=== PATIENT | female | born 1995 | race Caucasian/White ===

== ENCOUNTER 2017-01-27 19:41 | Emergency (ER) | payer OTHER ==
--- NOTE | 2017-01-27 20:34 | RADIOLOGY REPORT ---
HISTORY: Horse stepped on left foot, pain COMPARISON: None. FINDINGS: Three views of the foot obtained. There is no fracture. There is no lytic or sclerotic lesion. The re is no soft tissue swelling. There is normal alignment and mineralization. IMPRESSION: Unremarkable x-rays of the foot. Final Electronic Signature: This report was electronically signed by Cristian Ngo MD on 01/27/2017 8:32 PM. [email or web address] /
--- NOTE | 2017-01-27 20:46 | ER NURSING DOCUMENTATION ---
Nurse's Notes [facility] Name:Maia Frances Age:21 yrs Sex:Female :1995 Arrival Date:01/27/2017 Time:19:41 Bed6 Private MD: Diagnosis:Crush Injury to Toe Presentation: 01/27 19:43 Acuity: GRACY 4 19:53 Presenting complaint: Patient states: Horse stepped on the left foot of patient. rh patient having hard time bearing weight. Transition of care: Home. 19:53 Method Of Arrival: Walk In Triage Assessment: 19:54 General: Appears in no apparent distress, Behavior is cooperative. Pain: Complains of rh pain in dorsum of left foot, left first toe and left second toe. Neuro: Level of Consciousness is awake, alert, obeys commands, Oriented to person, place, time, event. Musculoskeletal: Circulation, motion, and sensation intact Range of motion intact in all extremities. Historical: - Allergies: NSAIDS; - Home Meds: 1. None - PMHx: None; - PSHx: None; - Tetanus: < 10 years. - Ebola Screening: : Patient negative for fever greater than or equal to 101.5 degrees Fahrenheit, and additional compatible Ebola Virus Disease symptoms. - Immunization history: Flu Vaccine None. - Social history: Smoking status: Patient states was never smoker of tobacco. Screenin:55 Infectious Disease Risk None. Abuse screen: Denies threats or abuse. Denies injuries rh from another. Nutritional screening: No deficits noted. Assessment: 19:55 See Triage Assessment done by same RN. Vital Signs: 19:54 BP 111 / 38; Pulse 80; Resp 16; Temp 98.7(O); Pulse Ox 96% on R/A; Weight 58.97 kg; rh Height 5 ft. 4 in. (162.56 cm); Pain 3/10; 19:54 Body Mass Index 22.31 (58.97 kg, 162.56 cm) ED Course: 19:43 Patient arrived in ED. dp 19:43 Klaudia Hobbs is Primary Nurse. 19:43 Triage completed. 19:47 Valdemar Velazquez MD is Attending Physician. sd 19:55 Notified ED Physician of patient's arrival and chief complaint. Dr. Velazquez notified. rh Affected limb iced. Affected limb elevated. 19:55 Valuables Remains with patient Patient has correct armband on for positive rh identification. Bed in low position. Call light in reach. Side rails up X 1. 20:20 Port Xray Completed. tt Administered Medications: No medications were administered Outcome: 20:31 Discharge ordered by . sd 20:45 Discharged to home ambulatory. 20:45 Condition: improved 20:45 Discharge Assessment: Patient awake, alert and oriented x 3. No cognitive and/or functional deficits noted. Patient verbalized understanding of disposition instructions. 20:45 Discharge instructions given to patient, Instructed on discharge instructions, follow up and referral plans. [facility] Demonstrated understanding of instructions. 20:45 Patient left the ED. Signatures: Valdemar Velazquez MD MD sc Terriere, Tracy tt Hofsess, Rachel Jerrica Matthews dp
--- NOTE | 2017-01-27 20:46 | ER PHYSICIAN DOCUMENTATION ---
Physician Documentation [facility] Name:Maia Frances Age:21 yrs Sex:Female :1995 Arrival Date:01/27/2017 Time:19:41 Bed6 Private MD: Valdemar Nick Disposition: 01/27/17 20:31 Discharged to Home/Self Care. Impression: Crush Injury to Toe. - Condition is Good. - Discharge Instructions: CRUSH INJURY, Foot/Toe. - Work release form, Medical Reconciliation form form. - Follow up: Private Physician; When: As needed; Reason: Worsening of condition. - Problem is new. - Symptoms are unchanged. HPI: 01/27 19:57 This 21 yrs old Female presents to ER via Walk In with complaints of Foot sc Injury - LEFT. 19:57 The patient presents with an injury. The complaints affect the left foot. Context: The sc problem was sustained at work, resulted from [employer] stepped on her toes., the patient is able to ambulate. Onset: The symptom(s)/episode began/occurred just prior to arrival. Associated signs and symptoms: The patient has no apparent associated signs or symptoms. Historical: - Allergies: NSAIDS; - Home Meds: 1. None - PMHx: None; - PSHx: None; - Tetanus: < 10 years. - Ebola Screening: : Patient negative for fever greater than or equal to 101.5 degrees Fahrenheit, and additional compatible Ebola Virus Disease symptoms. - Immunization history: Flu Vaccine None. - Social history: Smoking status: Patient states was never smoker of tobacco. ROS: 19:59 MS/extremity: Positive for injury or acute deformity. sc 19:59 Constitutional: Negative for fever, chills, and weight loss. sc Eyes: Negative for injury, pain, redness, and discharge. ENT: Negative for injury, pain, and discharge. Neck: Negative for injury, pain, and swelling. Skin: Negative for injury, rash, and discoloration. 19:59 Neuro: Negative for headache, weakness, numbness, tingling, and seizure. Exam: Constitutional: This is a well developed, well nourished patient who is awake, alert, and in no acute distress. Head/Face: Normocephalic, atraumatic. Neck: Trachea midline, no thyromegaly or masses palpated, and no cervical lymphadenopathy. Supple, full range of motion without nuchal rigidity, or vertebral point tenderness. No meningismus. 19:59 Neuro: Awake and alert, GCS 15, oriented to person, place, time, and situation. nv Cranial nerves II-XII grossly intact. Motor strength 5/5 in all extremities. Sensory grossly intact. Cerebellar exam normal. Normal gait. 19:59 Musculoskeletal/extremity: Extremities: grossly normal except: abrasion, contusion, decreased ROM, pain, swelling, ROM: limited active range of motion due to pain, limited passive range of motion due to pain, Circulation is intact in all extremities. Sensation intact. Vital Signs: 19:54 BP 111 / 38; Pulse 80; Resp 16; Temp 98.7(O); Pulse Ox 96% on R/A; Weight 58.97 kg; rh Height 5 ft. 4 in. (162.56 cm); Pain 3/10; 19:54 Body Mass Index 22.31 (58.97 kg, 162.56 cm) MDM: 19:47 Patient medically screened. nv 01/27 20:36 Order name: FOOT;[address] [place] [id number]; Complete Time: 21:00 EDAK 01/27 21:00 Interpretation: Normal. nv 01/27 19:53 Order name: ORTHO: Ice Pack; Complete Time: 19:53 Dispensed Medications: No medications were administered Signatures: Valedmar Velazquez MD MD nv Klaudia Hobbs
== END 2017-01-27 20:46 | disposition home or self-care (01) ==
LOC: ER 19:41
DX: S97.112A Crushing injury of left great toe, initial encounter (principal); S97.122A Crushing injury of left lesser toe(s), initial encounter; W55.12XA Struck by horse, initial encounter; Y92.838 Other recreation area as the place of occurrence of the external cause; Y93.K9 Activity, other involving animal care; Y99.0 Civilian activity done for income or pay
CPT/HCPCS: 99283